=== PATIENT | female | born 1940 | race Caucasian/White ===

== ENCOUNTER 2022-09-20 13:17 | Outpatient (CLI) | payer MEDICARE ==
[~2022-09-20] VITALS: Ht 162.6 cm; Wt 76.2 kg
== END 2022-09-20 13:39 | disposition home or self-care (01) ==
LOC: PREOP 13:17
PROVIDERS: ATTEND Internal Medicine
DX: Z01.818 Encounter for other preprocedural examination (principal)

== ENCOUNTER 2022-09-24 08:57 | Day surgery (SDC) | payer MEDICARE, OTHER ==
--- NOTE | 2022-09-20 16:03 | HISTORY AND PHYSICAL ---
COLONOSCOPY HISTORY AND PHYSICAL HISTORY OF PRESENT ILLNESS: The patient is an 81-year-old white female, appearing younger than her stated age. She reports that for the past 6 months, she has been having problems with what she reports as constipation. She at one point was going a week between stools. She has reported narrow caliber stools and even taken a picture of where there were multiple thin, soft appearing stool fragments roughly 2 inches long in the picture without reported bleeding problems. Previously, she reports that she had had mostly diarrhea problems. She has had some bilateral lower quadrant abdominal pain with this without chills, fever and no change in weight. She has taken 1 dose at the time of MiraLax, but this does not seem to be reported significant benefit for her. She reports her last colonoscopy was over 5 years ago, she believes she was told she has some diverticulum, but she does not think she had any polyps at that time. PAST SURGICAL HISTORY: Significant for cholecystectomy and total abdominal hysterectomy for benign reasons a number of years ago. PAST MEDICAL HISTORY: Significant for coronary artery disease. She had coronary stents placed 5 years ago, has had no problems since. She has a history of hypertension and hyperlipidemia. MEDICATIONS: On admission include clopidogrel 75 mg daily, hydrochlorothiazide 25 mg daily, [ ] 25 mg daily, turmeric 1500 mg daily, rosuvastatin 10 mg daily, probiotic daily, estradiol transdermal patch 0.05 weekly, B12 and a Joint [employer] supplement with multivitamin daily. FAMILY HISTORY: She had one uncle with colon cancer and is not aware of any other individuals, not aware of any other family members with colon cancer or polyps she is aware of noninflammatory bowel disease. REVIEW OF SYSTEMS: CONSTITUTIONAL: Denies night sweats, chills, fever or change in weight. PULMONARY: Denies cough, wheezing or shortness of breath. CARDIOVASCULAR: He has had no chest discomfort, no problems since stent placement. No history of peptic ulcer disease or upper GI bleed. GASTROINTESTINAL: As noted in the HPI. PHYSICAL EXAMINATION: GENERAL: Reveals a pleasant white female, appeared to be in no acute distress. HEENT: Unremarkable. No evidence for pallor. Sclerae nonicteric. CHEST: Clear to auscultation. CARDIOVASCULAR: Reveals a regular rate and rhythm without significant murmur, S3, or S4. ABDOMEN: Soft, supple with mild bilateral lower quadrant discomfort to palpation. No mass or organomegaly noted. No rebound or guarding present. Bowel sounds positive. EXTREMITIES: Revealed no cyanosis, clubbing or edema. ASSESSMENT AND PLAN: Recent onset of constipation, although technically this may be more anorectal dysfunction and consideration for significant rectocele, will be evaluating for this on examination. She had recent blood work done including thyroid and calcium she believes. She was told they were normal, but will try to obtain blood work from her primary care provider. Prep instructions for colonoscopy were given and questions were answered. She was advised that she take MiraLax daily and only hold this if she is developing diarrhea. Job ID: [id number] DocumentID: [id number] Dictated Date: 09/20/2022 15:09:07 Hemodialysis Technician Date: 09/20/2022 15:39:00 Dictated By: KEYONNA ESPINO MD
[~2022-09-24] VITALS: Ht 162.6 cm; Wt 76.2 kg
--- NOTE | 2022-09-24 09:03 | Pre-Op Note & Conscious Sedat ---
Pre-Operative Progress Note Date H&P Reviewed: Sep 24, 2022 Time H&P Reviewed: 09:02 History & Physical: H&P Reviewed, Patient Examed, No changes noted Pre-Op Diagnosis: Constipation Moderate Sedation PreProcedure ASA Score 2 Airway Lungs Heart ASA score ASA 1: a normal healthy patient ASA 2: a patient with a mild systemic disease (mid diabetes, controlled hypertension, obesity ASA 3: a patient with a severe systemic disease that limits activity (angina, COPD, prior Myocardial infarction) ASA 4: a patient with an incapacitating disease that is a constant threat to life (CHF, renal failure) ASA 5: a moribund patient not expected to survive 24 hrs. (ruptured aneurysm) ASA 6: a declared brain- patient whose organs are being harvested. For emergent operations, add the letter E after the classification Mallampati Classification Grade 2 Sedation Plan Analgesia, Amnesia, Plan communicated to team members, Discussed options with patient/fam, Discussed risks with patient/fam The patient is an appropriate candidate to undergo the planned procedure, sedation, and anesthesia. The patient immediately re-assessed prior to indication. KEYONNA ESPINO MD Sep 24, 2022 09:03
[2022-09-24] MEDS ORDERED: LACTATED RINGERS 1,000 ML IV STA (09:05)
[2022-09-24 09:31] VITALS: BP 131/75
[2022-09-24] MEDS ORDERED: PROPOFOL INJECTION 50 ML IV ONE (09:52)
[2022-09-24] MEDS ORDERED: GLUC-203 PO (09:56)
[2022-09-24] MEDS ORDERED: TURM500C13 PO (09:56)
[2022-09-24] MEDS ORDERED: HYDR25TA4 PO (09:56)
[2022-09-24] MEDS ORDERED: LACT1CAP74 PO (09:56)
[2022-09-24] MEDS ORDERED: ESTR1PAT76 TD (09:56)
[2022-09-24] MEDS ORDERED: MULT-593 PO (09:56)
[2022-09-24] MEDS ORDERED: CYAN250014 PO (09:56)
[2022-09-24] MEDS ORDERED: SERT-412 PO (09:56)
[2022-09-24] MEDS ORDERED: CLOP75TA28 PO (09:56)
[2022-09-24] MEDS ORDERED: ROSU10TA28 PO (09:56)
[2022-09-24] MEDS ORDERED: GLYCOPYRROLATE INJ 0.2 MG/ML 2 ML VIAL ONE (10:18)
[2022-09-24] MEDS ORDERED: proPOfol 200 MG/20 ML (DIPRIVAN) VIAL IV ONE (10:28)
[2022-09-24 10:45] VITALS: BP 110/55
[2022-09-24 10:50] VITALS: BP 109/54
[2022-09-24 11:20] VITALS: BP 109/54
--- NOTE | 2022-09-24 11:50 | Progress Note-Post Operative ---
Post-Procedure Note Physician (s)/Medical Transcription Supervisor (s) Physician KEYONNA ESPINO MD Pre-Procedure Diagnosis Pre-Procedure Diagnosis: Constipation Post-Procedure Diagnosis Post-operative diagnosis: Prior to undergoing colonoscopy digital rectal evaluation was performed. Anal suture tone was normal and the perianal reflex was intact. There is evidence for significant anterior rectocele with no retained stool with no other abnormalities being noted on digital evaluation. The colonoscope was then inserted into the rectum and under direct visualization advanced to the cecum. The cecum was identified by the indication of the ileocecal valve and cecal strap. Photographic documentation was obtained. Careful inspection was made as the colonoscope withdrawn. Quality the prep was good. Findings: There are no evidence for internal/external hemorrhoids and the rectum save for anterior rectocele was unremarkable. The sigmoid colon descending colon splenic flexure transverse colon and hepatic flexure unremarkable. Present the proximal ascending colon was a robertson 3 mm sessile polyp. It was removed via cold forceps with no blood loss. The cecum was unremarkable. A/P 1. One 3 mm sessile polyp was removed from the proximal ascending colon via cold forceps with no blood loss. Digital rectal evaluation was compatible with significant anterior rectocele with no evidence for colonic obstruction no evidence for diverticular disease. Did advise MiraLAX at bedtime. I suspect the patient has a component of IBS as well as anorectal dysfunction with possible stool pocketing due to significant anterior rectocele. We did discuss consideration for applying vaginal pressure to the posterior vaginal wall during defecation and/or various modified commodes that tilted back with feet up on a stool such as the squatty potty. Patient was reassured by today's findings. Considering age do not recommend future screening colonoscopy. KEYONNA ESPINO MD Sep 24, 2022 11:50
--- NOTE | 2022-09-24 12:54 | Anesthesia-General Post-Op ---
MAC Patient Condition Mental Status/LOC: Same as Preop Cardiovascular: Satisfactory Nausea/Vomiting: Absent Respiratory: Satisfactory Pain: Controlled Complications: Absent Post Op Complications Complications None Follow Up Care/Instructions Patient Instructions None needed. Anesthesiology Discharge Order Discharge Order Patient is doing well, no complaints, stable vital signs, no apparent adverse anesthesia problems. No complications reported per nursing. HAMIDA ROSSI CRNA Sep 24, 2022 12:54
== END 2022-09-24 11:35 | disposition home or self-care (01) ==
LOC: ENDO 08:57
PROVIDERS: ATTEND Internal Medicine
DX: K63.5 Polyp of colon (principal); N81.6 Rectocele; K59.00 Constipation, unspecified; Z95.5 Presence of coronary angioplasty implant and graft; Z80.0 Family history of malignant neoplasm of digestive organs